=== PATIENT | female | born 1995 | race Caucasian/White ===

== ENCOUNTER 2017-03-27 16:07 | Emergency (ER) | payer OTHER ==
[2017-03-27 16:21] VITALS: BP 113/75
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
== END 2017-03-27 19:40 | disposition home or self-care (01) ==
LOC: UCCORT 16:07
DX: R51 Headache (principal); M62.830 Muscle spasm of back; J45.909 Unspecified asthma, uncomplicated
CPT/HCPCS: 72070; 99212; G0463